=== PATIENT | male | born 1965 | race Two or more races ===

== ENCOUNTER 2023-07-07 05:23 | Emergency (ER) | payer OTHER ==
[~2023-07-07] VITALS: Ht 165.1 cm; Wt 78.3 kg
[2023-07-07 05:29] VITALS: BP 140/88; PULSE 72; RESP 16; TEMP 97.8
[2023-07-07 07:12] VITALS: O2SAT 99
[2023-07-07] MEDS ORDERED: CEPH500C PO (07:27)
[2023-07-07] MEDS ORDERED: IBUP-1456 PO (07:27)
== END 2023-07-07 07:40 | disposition home or self-care (01) ==
LOC: ER 05:23
DX: L02.32 Furuncle of buttock (principal)

== ENCOUNTER 2023-08-05 05:41 | Emergency (ER) | payer OTHER ==
[~2023-08-05] VITALS: Ht 167.6 cm; Wt 77.3 kg
[~2023-08-05 05:41] MED LIST: CEPH500C PO; IBUP-1456 PO
[2023-08-05 06:58] VITALS: BP 125/74; PULSE 74; RESP 18; TEMP 98; O2SAT 99
[2023-08-05] MEDS ORDERED: KETOROLAC TROMETH 60MG/2ML VIAL IM ONE (07:15)
[2023-08-05] MEDS ORDERED: IBUP-1456 PO (07:42)
[2023-08-05] MEDS ORDERED: METH-1182 PO (07:42)
== END 2023-08-05 07:49 | disposition home or self-care (01) ==
LOC: ER 05:41
DX: S39.012A Strain of muscle, fascia and tendon of lower back, initial encounter (principal); M51.37 Other intervertebral disc degeneration, lumbosacral region; X58.XXXA Exposure to other specified factors, initial encounter; Y93.89 Activity, other specified; Y92.89 Other specified places as the place of occurrence of the external cause; Y99.8 Other external cause status
CPT/HCPCS: 72100; 96372; 99283; J1885

== ENCOUNTER 2024-05-30 07:03 | Emergency (ER) | payer MEDICAID, OTHER ==
[~2024-05-30] VITALS: Ht 165.1 cm; Wt 79.7 kg
[~2024-05-30 07:03] MED LIST changes: +METH-1182 PO
[2024-05-30 08:03] VITALS: BP 129/84; PULSE 70; RESP 18; TEMP 97.7; O2SAT 99
[2024-05-30] MEDS ORDERED: IBUP-1455 PO (08:12)
[2024-05-30] MEDS ORDERED: HYDR-4902 PO (08:12)
[2024-05-30] MEDS: KETOROLAC TROMETH 30 MG/ML 1ML VIAL IM ONE (08:13)
== END 2024-05-30 08:51 | disposition home or self-care (01) ==
LOC: ER 07:03
DX: S82.62XA Displaced fracture of lateral malleolus of left fibula, initial encounter for closed fracture (principal); S92.352A Displaced fracture of fifth metatarsal bone, left foot, initial encounter for closed fracture; Z79.899 Other long term (current) drug therapy; X58.XXXA Exposure to other specified factors, initial encounter; Y93.89 Activity, other specified; Y92.89 Other specified places as the place of occurrence of the external cause; Y99.8 Other external cause status
CPT/HCPCS: 29515; 73610; 96372; 99283; J1885